=== PATIENT | female | born 1955 | race Caucasian/White ===

== ENCOUNTER 2016-03-27 11:43 | Emergency (ER) | payer BC ==
[2016-03-27 15:12] VITALS: BP 103/60
--- NOTE | 2016-03-27 15:32 | UC ---
Throat Pain/Nasal Mayank HPI - HPI Summary HPI Summary: Sinus congestion and cold symptoms for two weeks, increasing pressure and pain last few days. - History of Current Complaint Chief Complaint: UCGeneralIllness Stated Complaint: SINUS Time Seen by Provider: 03/27/16 15:22 Hx Obtained From: Patient ?: No Onset/Duration: Sudden Onset, Lasting Weeks Severity: Moderate Pain Intensity: 6 Pain Scale Used: 0-10 Numeric Cough: Productive Associated Signs & Symptoms: Positive: Dysphagia, Sinus Discomfort, Nasal Discharge - Epiglottits Risk Factors Epiglottis Risk Factors: Negative - Allergies/Home Medications Allergies/Adverse Reactions: Allergies Allergy/AdvReac Type Severity Reaction Status Date / Time Sulfa Antibiotics Allergy Hives Verified 03/27/16 15:11 PMH/Surg Hx/FS Hx/Imm Hx Previously Healthy: Yes Endocrine History Of: Denies: Diabetes Cardiovascular History Of: Denies: Hypertension, Pacemaker/ICD GI/ History Of: Reports: Renal Disease - GLOMERULAR NEPHRITIS - Surgical History Surgical History: Yes Surgery Procedure, Year, and Place: bunionectomy 1994 lt foot. 1995 lt breast calcifications removed. 2008 d&c - Family History Known Family History: Negative: Cardiac Disease, Hypertension - Social History Alcohol Use: Occasionally Substance Use Type: None Smoking Status (MU): Former Smoker - Immunization History Most Recent Influenza Vaccination: [id number] Review of Systems Constitutional: Fatigue Skin: Negative Eyes: Negative ENT: Sore Throat, Ear Ache, Nasal Discharge Respiratory: Cough Cardiovascular: Negative Gastrointestinal: Negative Genitourinary: Negative Motor: Negative Neurovascular: Negative Musculoskeletal: Negative Neurological: Headache Psychological: Negative All Other Systems Reviewed And Are Negative: Yes Physical Exam Triage Information Reviewed: Yes Appearance: Well-Nourished, Ill-Appearing, Pain Distress Vital Signs: Initial Vital Signs Temp 99.1 F 03/27/16 15:04 Pulse 71 03/27/16 15:04 Resp 17 03/27/16 15:04 BP 103/60 03/27/16 15:04 Pulse Ox 98 03/27/16 15:04 Vital Signs Reviewed: Yes Eye Exam: Normal Eyes: Positive: Conjunctiva Inflamed ENT Exam: Normal ENT: Positive: Pharyngeal erythema - post nasal drip, Nasal congestion, Nasal drainage, TMs normal Dental Exam: Normal Neck exam: Normal Neck: Positive: Supple, Nontender, No Lymphadenopathy Respiratory Exam: Normal Respiratory: Positive: Chest non-tender, Lungs clear, Normal breath sounds Cardiovascular Exam: Normal Cardiovascular: Positive: RRR, No Murmur, Pulses Normal Abdominal Exam: Normal Abdomen Description: Positive: Nontender, No Organomegaly, Soft Bowel Sounds: Positive: Present Musculoskeletal Exam: Normal Musculoskeletal: Positive: Strength Intact, ROM Intact, No Edema Neurological Exam: Normal Neurological: Positive: Alert, Muscle Tone Normal Psychological Exam: Normal Skin Exam: Normal Throat Pain/Nasal Course/Dx - Course Course Of Treatment: hx completed, exam performed, medication ordered, educated on neti pot use. - Differential Dx/Diagnosis Differential Diagnosis/HQI/PQRI: Influenza, Laryngitis, Otitis Media, Pharyngitis, Sinusitis, URI Provider Diagnoses: sinusitis Discharge - Discharge Plan Condition: Stable Disposition: HOME Prescriptions: Azithromycin TAB* [Zithromax TAB (Z-NOLBERTO)*] 0 mg PO .Z-NOLBRETO INSTRUCTIONS #6 tab Patient Education Materials: Sinusitis (ED) Additional Instructions: Take the medication as prescribed. Use the neti pot for manual drainage of the sinuses.
== END 2016-03-27 15:39 | disposition home or self-care (01) ==
LOC: UCCORT 11:43
DX: J32.9 Chronic sinusitis, unspecified (principal); Z88.2 Allergy status to sulfonamides; N03.2 Chronic nephritic syndrome with diffuse membranous glomerulonephritis; Z87.891 Personal history of nicotine dependence
CPT/HCPCS: 99212; G0463